=== PATIENT | male | born 1965 | race Caucasian/White ===

== ENCOUNTER 2018-11-25 20:43 | Emergency (ER) | payer OTHER ==
[2018-11-25] MEDS: 0.9 % SODIUM CHLORIDE 1,000 ML IV ONE (21:47)
--- NOTE | 2018-11-25 22:01 | ED Physician Documentation ---
General Adult - HISTORIAN Historian: patient - HPI Stated Complaint: fell at home Chief Complaint: General Adult Additional Information: Patient presents to ED via EMS after falling off the couch while taking a nap and he was unable to get up. Patient states he must have fallen off the couch while he was sleeping because when he woke up he was in the floor and could not get up. He called EMS for assistance and he was brought in to ED. Patient has chronic bilateral knee and low back pain. He reports left knee pain and low back pain. Onset: hours (2) Timing: still present Severity: mild - ROS CONST: no problems EYES/ENT: none CVS/RESP: none GI/: none MS/SKIN/LYMPH: none NEURO/PSYCH: denies: headache - PAST HX Past History: other (chronic low back pain) Other History: none Surgeries/Procedures: other (bilateral knee surgery) Allergies/Adverse Reactions: Allergies Allergy/AdvReac Type Severity Reaction Status Date / Time Penicillins Allergy Severe can't Verified 10/17/14 03:32 breath sulfamethoxazole Allergy Intermediate Verified 10/17/14 06:51 [From Bactrim] trimethoprim [From Bactrim] Allergy Intermediate Verified 10/17/14 06:51 mushrooms Allergy Severe can't Uncoded 11/07/12 18:43 breath Home Medications: Ambulatory Orders Medication Instructions Recorded Aspirin [Chantale] 325 mg PO DAILY 10/17/14 Hydrocodone/Acetaminophen [[place] 1 tab PO Q4H PRN 10/17/14 5-325 Tablet] Hydromorphone HCl [Dilaudid] 4 mg PO Q4H PRN 10/17/14 Phenytoin Sodium Extended 400 mg PO BID 10/17/14 [Phenytek] Sennosides/Docusate Sodium 2 each PO HS 10/17/14 [Senna-Docusate Sodium Tablet] Sulfamethoxazole/Trimethoprim 1 each PO BID 10/17/14 [Bactrim Ds] - SOCIAL HX Smoking History: non-smoker Alcohol Use: none Drug Use: none - FAMILY HX Family History: No - VITAL SIGNS Vital Signs: Vital Signs Temp Pulse Resp BP Pulse Ox 130/98 10/17/14 06:55 - REVIEWED ASSESSMENTS Nursing Assessment Reviewed: Yes Vitals Reviewed: Yes ED Results Lab/Radiology - Radiology Radiology Impressions: Report Submission Date: Nov 25, 2018 9:52:43 PM CDT Patient Study Name: DYLON DUFFY Date: Nov 25, 2018 9:08:26 PM CDT Modality Type: DX Gender: M Description: KNEE 3 VIEWS : 67 Institution: [facility] Physician: GARY GARCIA Left knee three views History: Pain after fall Findings: Total left knee arthroplasty is observed in anatomic alignment without fracture, dislocation, or loosening. Electronically signed on Nov 25, 2018 9:52:43 PM CDT by: Los Andrade Report Submission Date: Nov 25, 2018 9:56:57 PM CDT Patient Study Name: DYLON DUFFY Date: Nov 25, 2018 9:08:26 PM CDT Modality Type: DX Gender: M Description: L SPINE 2 OR 3 VIEWS : 67 Institution: [facility] Physician: GARY GARCIA Lumbar spine three views History: Low back pain after fall Findings: A catheter projects over the abdomen. There is mild disc space narrowing at L1-2 and L2-3. Multilevel thoracolumbar marginal hyperostosis is observed. There is anterior wedging of the T11, T12, and L1 vertebra, more likely chronic than acute. Electronically signed on Nov 25, 2018 9:56:57 PM CDT by: Los Andrade - Orders Orders: ED Orders Category Date Time Status Place IV Lock 1T Care 11/25/18 20:50 Active KNEE 3 VIEWS [RAD] Stat Exams 11/25/18 Ordered L SPINE 2 OR 3 VIEWS [RAD] Stat Exams 11/25/18 Ordered CBC/PLATELET/DIFF Routine Lab 11/25/18 21:06 Received CMP Routine Lab 11/25/18 21:06 Received 0.9 % Sodium Chloride [Normal Saline] 1,000 ml Med 11/25/18 20:51 Discontinued IV Q1H EKG WITH COMPARISON Stat Ther 11/25/18 Ordered General Adult Physical Exam - PHYSICAL EXAM GENERAL APPEARANCE: no distress EENT: VISH NECK: normal inspection, supple RESPIRATORY: no resp distress, chest non-tender, breath sounds normal CVS: reg rate & rhythm, heart sounds normal ABDOMEN: soft, normal bowel sounds BACK: normal inspection SKIN: warm/dry, normal color EXTREMITIES: non-tender, no evidence of injury, no edema NEURO: oriented X3, mood/affect nml Discharge Clincal Impression: Fall from bed, initial encounter Referrals: Whitney Hopper MD [Primary Care Provider] - 2 Days Additional Instructions: 1. Take home medications as previously prescribed. 2. Follow up with PCP within 1 week 3. Return to ER for new or worsening symptoms Condition: Stable Disposition: 01 HOME, SELF-CARE Decision to Admit: NO Date of Decison to Admit: 11/25/18 Decision Time: 22:05
[2018-11-25 22:20] VITALS: BP 107/77
--- NOTE | 2018-11-26 06:33 | Diagnostic Imaging Report ---
GARY GARCIA [facility] [address] [facility].[address] [id number] Report Submission Date: Nov 25, 2018 9:56:57 PM CDT Patient Study Name: DYLON DUFFY Date: Nov 25, 2018 9:08:26 PM CDT Modality Type: DX Gender: M Description: L SPINE 2 OR 3 VIEWS : 67 Institution: [facility] Physician: GARY GARCIA Lumbar spine three views History: Low back pain after fall Findings: A catheter projects over the abdomen. There is mild disc space narrowing at L1-2 and L2-3. Multilevel thoracolumbar marginal hyperostosis is observed. There is anterior wedging of the T11, T12, and L1 vertebra, more likely chronic than acute. Electronically signed on Nov 25, 2018 9:56:57 PM CDT by: Los CHATMAN
--- NOTE | 2018-11-26 06:33 | Diagnostic Imaging Report ---
GARY GARCIA [facility] [address] [address] Report Submission Date: Nov 25, 2018 9:52:43 PM CDT Patient Study Name: DYLON DUFFY Date: Nov 25, 2018 9:08:26 PM CDT Modality Type: DX Gender: M Description: KNEE 3 VIEWS : 67 Institution: [facility] Physician: GARY GARCIA Left knee three views History: Pain after fall Findings: Total left knee arthroplasty is observed in anatomic alignment without fracture, dislocation, or loosening. Electronically signed on Nov 25, 2018 9:52:43 PM CDT by: Los CHATMAN
[2018-11-26 09:22] LABS: BASOPHILS % 0.5 % (0.0-1.5); NEUTROPHILS # 6.7 # k/uL (1.4-7.7)
[2018-11-26 09:24] LABS: eGFR (Non-African) > 60
== END 2018-11-25 22:28 | disposition home or self-care (01) ==
LOC: ED 20:43
DX: M25.562 Pain in left knee (principal); M54.5 Low back pain; W08.XXXA Fall from other furniture, initial encounter; Y93.84 Activity, sleeping; Y92.009 Unspecified place in unspecified non-institutional (private) residence as the place of occurrence of the external cause
CPT/HCPCS: 80053; 85025; 96360; 99284; J7030; 72100; 73562; 93005; S1016